=== PATIENT | male | born 1985 | race Caucasian/White ===

== ENCOUNTER 2018-02-24 11:33 | Emergency (ER) | payer OTHER ==
[~2018-02-24] VITALS: Ht 175.3 cm; Wt 70.5 kg
[2018-02-24 11:39] VITALS: BP 115/58; TEMP 97.8
[2018-02-24] MEDS ORDERED: CLEOCIN HCL300 MG PO (12:20)
[2018-02-24 12:33] VITALS: PULSE 84
== END 2018-02-24 12:35 | disposition home or self-care (01) ==
LOC: COL.ER 11:33
DX: K04.7 Periapical abscess without sinus (principal); Z86.19 Personal history of other infectious and parasitic diseases